=== PATIENT | male | born 1995 | race Caucasian/White ===

== ENCOUNTER 2018-04-12 11:21 | Day surgery (SDC) | payer OTHER ==
[~2018-04-12] VITALS: Ht 175.3 cm; Wt 89.7 kg
[~2018-04-12 11:21] MED LIST: LIDOCAINE 2% INJ 100 MG/5 ML SDV (FOR ANES.) As Ordered ONE; PROPOFOL 200 MG/20 ML VIAL As Ordered ONE
[2018-04-12] MEDS ORDERED: NS 1,000 ML IV ONE (12:00)
[2018-04-12] MEDS ORDERED: fentaNYL 100 MCG/2 ML INJECTION (J3010) As Ordered ONE (12:20)
[2018-04-12] MEDS ORDERED: PROPOFOL 200 MG/20 ML VIAL As Ordered ONE (12:22)
--- NOTE | 2018-04-12 12:22 | ROOR ---
Patient Name: Espinoza De La Vega Procedure Date: 04/12/2018 12:07 PM Date of : 1995 Age: 22 Room: [facility] Gender: Male Note Status: Finalized Procedure: Upper GI endoscopy Indications: Heartburn Providers: Pollo SHAH MD Referring MD: THALIA REYES MD Requesting Provider: Medicines: Monitored Anesthesia Care Complications: No immediate complications. Procedure: Pre-Anesthesia Assessment: - The heart rate, respiratory rate, oxygen saturations, blood pressure, adequacy of pulmonary ventilation, and response to care were monitored throughout the procedure. The Endoscope was introduced through the mouth, and advanced to the second part of duodenum. The upper GI endoscopy was accomplished without difficulty. The patient tolerated the procedure well. Findings: Mildly severe esophagitis with no bleeding was found at the gastroesophageal junction. Biopsies were taken with a cold forceps for histology. Mild inflammation was found in the gastric antrum. Biopsies were taken with a cold forceps for histology. The exam was otherwise without abnormality. Impression: - Mild reflux esophagitis with slight nodularity at GE junction. Biopsied. - Mild Gastritis. Biopsied. - The examination was otherwise normal. Recommendation: - Telephone endoscopist for pathology results in 2 weeks. - Use Prilosec (omeprazole) 40 mg PO daily for 2 months. - (the script was sent to your pharmacy on file) Pollo Shah MD Pollo SHAH MD 04/12/2018 12:21:31 PM This report has been signed electronically. Number of Addenda: 0 Note Initiated On: 04/12/2018 12:07 PM Estimated Blood Loss: Estimated blood loss: none.
--- NOTE | 2018-04-12 12:39 | ROOR ---
Patient Name: Espinoza De La Vega Procedure Date: 04/12/2018 12:08 PM Date of : 1995 Age: 22 Room: [facility] Gender: Male Note Status: Finalized Procedure: Colonoscopy Indications: Hematochezia Providers: Pollo SHAH MD Referring MD: THALIA REYES MD Requesting Provider: Medicines: Monitored Anesthesia Care Complications: No immediate complications. Procedure: Pre-Anesthesia Assessment: - The heart rate, respiratory rate, oxygen saturations, blood pressure, adequacy of pulmonary ventilation, and response to care were monitored throughout the procedure. The Colonoscope was introduced through the anus and advanced to 10 cm into the ileum. The colonoscopy was performed without difficulty. The patient tolerated the procedure well. The quality of the bowel preparation was good. Findings: The perianal and digital rectal examinations were normal. Prolapsed internal hemorrhoids were found during retroflexion. The hemorrhoids were Grade II (internal hemorrhoids that prolapse but reduce spontaneously). The entire colon is otherwise normal on direct and retroflexion views. The terminal ileum appeared normal. Impression: - Prolapsed internal hemorrhoids. - The colon is otherwise normal on direct and retroflexion views. - The examined portion of the ileum was normal. - No specimens collected. Recommendation: - Use fiber, for example Citrucel, Fibercon, Konsyl or Metamucil. - Miralax 1 capful (17 grams) in 8 ounces of water PO daily. - ProctoFoam-HC: Apply externally BID for 2 weeks. - (the script was sent to your pharmacy on file) Pollo Shah MD Pollo SHAH MD 04/12/2018 12:39:07 PM This report has been signed electronically. Number of Addenda: 0 Note Initiated On: 04/12/2018 12:08 PM Estimated Blood Loss: Estimated blood loss: none.
[2018-04-12 13:37] VITALS: BP 104/54
== END 2018-04-12 13:40 | disposition home or self-care (01) ==
LOC: M OPP 11:21
PROVIDERS: ATTEND Internal Medicine Gastroenterology
DX: K92.1 Melena (principal); K64.1 Second degree hemorrhoids; R12 Heartburn; K21.0 Gastro-esophageal reflux disease with esophagitis; K29.70 Gastritis, unspecified, without bleeding
CPT/HCPCS: 43239; 45378; 88305; 88313; J3010

== ENCOUNTER 2018-06-05 03:04 | Emergency (ER) | payer OTHER ==
[~2018-06-05] VITALS: Ht 175.3 cm; Wt 88.6 kg
[2018-06-05] MEDS ORDERED: PRIL20TA2 PO (03:07)
[2018-06-05] MEDS ORDERED: TRUVTAB PO (06:27)
[2018-06-05] MEDS ORDERED: RALT40TA PO (06:27)
[2018-06-05] MEDS ORDERED: EXPOSURE KIT-ADULT 7 DAY SUPPLY PO ONE (06:30)
[2018-06-05 06:47] LABS: BASO % 0.4 % (0.0-1.0); EOS # 0.1 10^3/uL (0.0-0.50); EOS % 1.7 % (0.0-3.0); HEMATOCRIT 40.7 % (42.0-52.0); HEMOGLOBIN 14.2 g/dl (13.5-17.5); LYMPH # 3.2 10^3/uL (1.5-6.5); LYMPH % 39.8 % (24.0-44.0); MEAN CORPUSCULAR HEMOGLOBIN 29.8 pg (27.0-33.0); MEAN CORPUSCULAR HGB CONC 34.9 g/dl (32.0-36.5); MEAN CORPUSCULAR VOLUME 85.3 fl (80.0-96.0); MONO # 0.5 10^3/uL (0.0-0.8); MONO % 6.3 % (0.0-5.0); NEUTROPHILS # 4.1 10^3/uL (1.8-7.7); NEUTROPHILS % 51.4 % (36.0-66.0); PLATELET COUNT, AUTOMATED 262 10^3/uL (150-450); RED BLOOD COUNT 4.77 10^6/uL (4.30-6.10); WHITE BLOOD COUNT 8.1 10^3/uL (4.0-10.0)
[2018-06-05 06:49] VITALS: BP 139/68
[2018-06-05 07:09] LABS: ALBUMIN 4.3 GM/DL (3.2-5.2); ALT/SGPT 46 U/L (12-78); BILIRUBIN,TOTAL 0.6 MG/DL (0.2-1.0); BLOOD UREA NITROGEN 17 MG/DL (7-18); CALCIUM LEVEL 8.9 MG/DL (8.5-10.1); CARBON DIOXIDE LEVEL 26 MEQ/L (21-32); CHLORIDE LEVEL 106 MEQ/L (98-107); CREATININE FOR GFR 0.99 MG/DL (0.70-1.30); GLOMERULAR FILTRATION RATE > 60.0 (>60); GLUCOSE, FASTING 90 MG/DL (70-100); SODIUM LEVEL 139 MEQ/L (136-145); TOTAL PROTEIN 7.4 GM/DL (6.4-8.2)
[2018-06-05 10:28] LABS: HEPATITIS B SURFACE ANTIBODY POSITIVE (POSITIVE)
[2018-06-05 10:40] LABS: HEPATITIS B SURFACE ANTIGEN NEGATIVE (NEGATIVE)
[2018-06-05 10:59] LABS: HEPATITIS C VIRUS ABY INDEX 0.1 INDEX (<0.8)
== END 2018-06-05 06:50 | disposition home or self-care (01) ==
LOC: M ED 03:04
DX: Z20.2 Contact with and (suspected) exposure to infections with a predominantly sexual mode of transmission (principal); J45.909 Unspecified asthma, uncomplicated; Z79.899 Other long term (current) drug therapy

== ENCOUNTER → 2018-07-29 | Outpatient (REF) | payer OTHER ==
[~2018-07-29] MED LIST changes: -LIDOCAINE 2% INJ 100 MG/5 ML SDV (FOR ANES.) As Ordered ONE; +PRIL20TA2 PO; -PROPOFOL 200 MG/20 ML VIAL As Ordered ONE; +RALT40TA PO; +TRUVTAB PO
== END ==
LOC: M SFHCPLAZ 11:52
PROVIDERS: ATTEND Internal Medicine Infectious Disease
DX: Z77.21 Contact with and (suspected) exposure to potentially hazardous body fluids (principal); Z53.9 Procedure and treatment not carried out, unspecified reason

== ENCOUNTER → 2018-09-23 | Outpatient (REF) | payer OTHER ==
[2018-09-23 17:09] LABS: HEPATITIS C VIRUS ABY INDEX 0.1 INDEX (<0.8); HIV 1&2 SCREEN CENTAUR NEGATIVE (NEGATIVE)
== END ==
LOC: M SFHCPLAZ 13:13
PROVIDERS: ATTEND Internal Medicine Infectious Disease
DX: Z77.21 Contact with and (suspected) exposure to potentially hazardous body fluids (principal)
CPT/HCPCS: 86803; 87389; G0463